=== PATIENT | male | born 2000 | race Caucasian/White ===

== ENCOUNTER 2021-09-26 20:50 | Emergency (ER) | payer OTHER ==
[~2021-09-26 20:50] MED LIST: NAPROXEN500 MG PO
[2021-09-27] MEDS ORDERED: NORCO 5-325 TA1 EACH PO (02:16)
[2021-09-27] MEDS ORDERED: CLINDAMYCIN 15150 MG PO (02:16)
[2021-09-27] MEDS ORDERED: IBUPROFEN800 MG PO (02:16)
== END 2021-09-27 02:34 | disposition home or self-care (01) ==
LOC: FER 20:50
DX: K05.219 Aggressive periodontitis, localized, unspecified severity (principal)
CPT/HCPCS: 96372; 99283; J1885; Q0163

== ENCOUNTER 2021-09-27 15:32 | Emergency (ER) | payer OTHER ==
[~2021-09-27 15:32] MED LIST changes: +CLINDAMYCIN 15150 MG PO; +IBUPROFEN800 MG PO; +NORCO 5-325 TA1 EACH PO
== END 2021-09-27 19:36 | disposition home or self-care (01) ==
LOC: FER 15:32
DX: K05.219 Aggressive periodontitis, localized, unspecified severity (principal)
CPT/HCPCS: 96372; J0696; J1885; Q0163